=== PATIENT | female | born 1940 | race Caucasian/White ===

== ENCOUNTER 2020-05-24 20:18 | Emergency (ER) | payer MEDICARE, OTHER ==
[~2020-05-24] VITALS: Ht 154.9 cm; Wt 59.1 kg
[2020-05-24 21:15] LABS: BASO # 0.1 (0.0-0.2); BASO % 0.3 % (0.0-2.0); GRAN # 17.5 (1.4-6.5); GRAN % 89.4 % (42.2-75.2); HEMATOCRIT 38.6 % (37.0-47.0); LYMPH # 0.9 (1.2-3.4); LYMPH % 4.6 % (20.0-51.0); MEAN CELL VOLUME 104 fl (80.0-100.0); MEAN CORPUSCULAR HEMOGLOBIN 35 pg (27.0-31.0); MEAN CORPUSCULAR HGB CONC 34 g/dl (33.0-37.0); MEAN PLATELET VOLUME 8.5 fl (7.4-10.4); MONO % 5.1 % (1.7-9.3); PLATELET COUNT 755 K/mm3 (130-400); RED BLOOD COUNT 3.73 M/mm3 (4.10-5.30); REDCELL DISTRIBUTION WIDTH-CV 13.2 % (11.5-14.5)
[2020-05-24 21:17] LABS: ALANINE AMINOTRANSFERASE 18 U/L (4-34); ALBUMIN 4.3 gm/dL (3.5-5.0); ALKALINE PHOSPHATASE 92 U/L (50-136); ANION GAP 13 mmol/L (7-16); AST,SGOT 29 U/L (15-37); BILIRUBIN,TOTAL 0.7 mg/dL (0.0-1.0); BLOOD UREA NITROGEN 29 mg/dL (7-17); CARBON DIOXIDE 24 mmol/L (22-30); CHLORIDE 99 mmol/L (98-107); CREATININE, serum 1.39 (0.52-1.25); GLUCOSE 148 mg/dL (74-106); LIPASE 121 U/L (23-300); POTASSIUM 3.5 mmol/L (3.4-5.0); SODIUM 135 mmol/L (137-145); TOTAL PROTEIN 8.6 gm/dL (6.4-8.2)
[2020-05-24 21:22] LABS: COLLECTION METHOD CLEAN CATCH
[2020-05-24 21:24] LABS: INR 1.2 (0.8-3.0); PROTHROMBIN TIME 13.6 SECONDS (9.7-12.8)
[2020-05-24 21:31] LABS: TROPONIN-I < 0.012 ng/mL (0.000-0.035)
[2020-05-24 21:49] LABS: BUDDING YEAST Present /hpf; GRANULAR CAST >12 /lpf; MUCOUS Present /lpf; PH 5 (5-8); SQUAMOUS EPITHELIAL 0-2 /hpf; URINE APPEARANCE Cloudy; URINE BACTERIA Rare /hpf; URINE BILIRUBIN Negative (NEGATIVE); URINE BLOOD Negative (NEGATIVE); URINE COLOR Amber; URINE GLUCOSE Negative (NEGATIVE); URINE KETONE Trace (NEGATIVE); URINE LEUKOCYTE ESTERASE 3+ (NEGATIVE); URINE NITRATE Negative (NEGATIVE); URINE PROTEIN(semi-quant) 2+ (NEGATIVE); URINE UROBILINOGEN Negative (NEGATIVE)
[2020-05-24] MEDS ORDERED: ZEBETA 5MG5 MG PO (22:16)
[2020-05-24] MEDS ORDERED: ZIAC 5/6.25MG T1 TAB PO (22:17)
[2020-05-24] MEDS ORDERED: PROBIOTIC DIGE1 EACH PO (22:18)
[2020-05-24] MEDS ORDERED: AMOXICILLIN 8751 TAB PO (22:18)
[2020-05-25 01:30] VITALS: BP 111/63; PULSE 82; TEMP 97.8
== END 2020-05-25 01:33 ==
LOC: COL.ER 20:18
PROVIDERS: Emergency Medicine
DX: N73.9 Female pelvic inflammatory disease, unspecified (principal); I10 Essential (primary) hypertension; Z20.822 Contact with and (suspected) exposure to COVID-19
CPT/HCPCS: J2543; J3370; J7030; J7050; Q9967